=== PATIENT | male | born 1960 | race Caucasian/White ===

== ENCOUNTER 2020-03-11 07:50 | Outpatient (CLI) | payer OTHER, SELFPAY ==
[2020-03-11 19:42] LABS: SARS-CoV-2 RNA PCR Negative
== END 2020-03-11 07:51 | disposition home or self-care (01) ==
LOC: ANHCOVIDDT 07:50
PROVIDERS: PCP Physician Assistant; Visit Provider Internal Medicine Gastroenterology
DX: Z01.812 Encounter for preprocedural laboratory examination (principal); Z20.822 Contact with and (suspected) exposure to COVID-19
CPT/HCPCS: C9803; U0003

== ENCOUNTER 2020-03-14 00:20 | Day surgery (SDC) | payer OTHER, SELFPAY ==
[2020-03-03 12:53] VITALS: BMI 31.1
--- NOTE | 2020-03-04 13:16 | PC.NURSE ---
SPOKE WITH PT REGARDING COVID PRESCREENING, PT WANTS TO HAVE IT DONE AT [facility]. INFORMED PT HE WILL NEED HIS PRIMARY TO ORDER THE TEST AT [facility] AND HE IS RESPONSIBLE TO MAKING SURE [facility] FAXES THE RESULTS TO US AT [phone] NO LATER THAN 03/13/2020.
[2020-03-14] MEDS: LACTATED RINGERS 1,000 ML 150 ML IV CONT (09:05)
[2020-03-14 09:13] VITALS: BP 162/99; PULSE 68; RESP 20; TEMP 36.6; O2SAT 97
--- NOTE | 2020-03-14 09:31 | WPDANESEPPF ---
Anes - Initial Pre Proc Eval Procedure: Operation Date: 03/14/20 10:00 Proposed Procedures p Screening Colonoscopy - Bobby Martin MD Date/Time: 03/14/20 09:31 Surgeon: Bobby Martin MD Pre Op Diagnosis: neoplasm screening Patient Data Age: 59 Gender: M Height: 5 ft 7 in Weight: 83.5 kg Last Vital Signs Temp 97.8 F 03/14/20 09:13 Pulse 68 03/14/20 09:13 Resp 20 03/14/20 09:13 BP 162/99 H 03/14/20 09:13 Pulse Ox 97 03/14/20 09:13 Allergies Allergy/AdvReac Type Severity Reaction Status Date / Time lisinopril Allergy Mild jitteriness, Verified 03/03/20 12:52 nervousness, sweating Home Medications Medication Instructions Recorded Confirmed Type hydrocodone 10 mg-acetaminophen 1 tablet PO Q4-6H PRN tablet 04/20/19 03/03/20 History 325 mg tablet melatonin 3 mg capsule 3 mg PO DAILY 04/20/19 03/03/20 History quinapril 20 mg tablet 20 mg PO DAILY #90 tablet 01/01/20 03/03/20 Rx Patient hx anesthesia problems: none Family hx anesthesia problems: none PMFSH Past Medical History Medical History (Updated 03/14/20 @ 09:31 by Harinder Oliveira MD) Hypertension Family History Family History Mother Patient's mother is in good health Other Family history of neuropathy Social History Social History Smoking status: Never smoker Second hand tobacco smoke exposure: No Alcohol intake: never Substance use: never Substance use type: does not use Living arrangements: with family Spiritual care concerns: No Anes - Eval Final PreProcedure Day of Procedure 03/14/20 09:31 Patient weight: normal Heart: regular rate and rhythm Lungs: clear to auscultation Airway: Mallampati scale class II Neurological: alert and oriented Last oral intake: >/= 8 hours ASA classification: II Emergent: no Anesthetic plan: proceed Anesthesia type and monitoring: general GIVS and standard monitoring Informed Consent: The patient's anesthetic plan and its attendant risks and benefits were discussed with the patient/family/POA. Questions were solicited and answers provided to the satisfaction of the patient/family/POA.
--- NOTE | 2020-03-14 09:53 | PM.HPGS ---
History of Present Illness History of Present Illness Consent: Risks, benefits, and alternatives have been discussed and questions answered. Patient agrees to proceed with procedure. Chief complaint: neoplasm screening Narrative: Jung Hines is a 59 year old male here for screening colonoscopy, last one 8 years ago. Review of Systems Constitutional: Constitutional: Denies headache(s) and Denies weakness Eyes: Eyes: Denies blurry vision ENT: Reports Normal hearing present, Denies headache(s) and Denies neck pain Cardiovascular: Cardiovascular: Denies chest pain and Denies dyspnea Respiratory: Respiratory: Denies dyspnea Gastrointestinal: Gastrointestinal: Reports no additional gastrointestinal complaints Genitourinary: Genitourinary: Denies dysuria Musculoskeletal: Musculoskeletal: Denies neck pain Integumentary/Breasts: Skin/Breast: Denies dry skin Neurologic: Reports Normal hearing present, Denies headache(s) and Denies weakness Psychiatric: Psychiatric: Denies anxiety Endocrine: Endocrine: Denies change in body appearance Hematologic/Lymphatic: Hematologic/Lymphatic: Denies easy bleeding Allergic/Immunologic: Allergic/Immunologic: Denies urticaria PMFSH Past Medical History Medical History (Updated 03/14/20 @ 09:53 by Bobby Martin MD) Colon cancer screening Hypertension Family History Family History Mother Patient's mother is in good health Other Family history of neuropathy Social History Social History Smoking status: Never smoker Second hand tobacco smoke exposure: No Alcohol intake: never Substance use: never Substance use type: does not use Living arrangements: with family Spiritual care concerns: No Meds Home Medications and Allergies Home Medications Medication Instructions Recorded Confirmed Type hydrocodone 10 mg-acetaminophen 1 tablet PO Q4-6H PRN tablet 04/20/19 03/03/20 History 325 mg tablet melatonin 3 mg capsule 3 mg PO DAILY 04/20/19 03/03/20 History quinapril 20 mg tablet 20 mg PO DAILY #90 tablet 01/01/20 03/03/20 Rx Allergies Allergy/AdvReac Type Severity Reaction Status Date / Time lisinopril Allergy Mild jitteriness, Verified 03/03/20 12:52 nervousness, sweating Vital Signs Vital Signs - 24 hr 03/14/20 09:13 Temperature 97.8 F Pulse Rate 68 Respiratory Rate 20 Blood Pressure 162/99 H Pulse Oximetry 97 Exam Const: General: comfortable and no acute distress HENMT: General nose exam: Normal nares present Eyes: General: appearance normal, both eyes and all related structures Neck: Neck: no JVD Resp: Auscultation: clear to auscultation bilaterally Cardio: Rate: regular rate Rhythm: regular rhythm GI: Inspection: non-distended GI Palp: Yes Soft to palpation Skin: General skin exam: normal color Neuro: General: gait normal Speech: normal speech Extrem: General: normal to inspection Psych: Mental Status: mental status grossly normal Assessment and Plan Assessment and plan (1) Colon cancer screening: Code(s): Z12.11 - Encounter for screening for malignant neoplasm of colon Status: Acute Assessment and Plan: will proceed with colonoscopy
[2020-03-14 10:21] VITALS: BP 129/93; PULSE 69; RESP 18; O2SAT 97
[2020-03-14 10:31] VITALS: BP 159/104; PULSE 68; RESP 20; O2SAT 96
[2020-03-14 10:41] VITALS: BP 176/105; PULSE 56; RESP 18; O2SAT 100
--- NOTE | 2020-03-14 10:48 | SUR.PHASEII ---
DR LEARY MADE AWARE OF PT'S BLOOD PRESSURE OF 159/104 AND 176/105. PT HAS NOT TAKEN HIS QUINAPRIL TODAY. DR LEARY INSTRUCTED PT TO TAKE MEDICATION WHEN HE GETS HOME. NO NEW ORDERS.
== END 2020-03-14 10:57 | disposition home or self-care (01) ==
PROVIDERS: PCP Physician Assistant; Visit Provider Internal Medicine Gastroenterology
PROC: 0DJD8ZZ Inspection of Lower Intestinal Tract, Via Natural or Artificial Opening Endoscopic (ICD-10-PCS; CPT 45378; principal; 2020-03-14 10:00)
DX: Z12.11 Encounter for screening for malignant neoplasm of colon (principal); I10 Essential (primary) hypertension; K64.8 Other hemorrhoids
CPT/HCPCS: 45378; C9803; J2704; J7120; U0003

== ENCOUNTER 2020-05-07 13:20 | Outpatient (CLI) | payer OTHER, SELFPAY | END 2020-05-07 13:21 | disposition home or self-care (01) | LOC: ANHCOVIDVC 13:20 | PROVIDERS: PCP Physician Assistant | DX: Z23 Encounter for immunization (principal) | CPT/HCPCS: 0001A; 91300 ==

== ENCOUNTER 2020-05-28 13:19 | Outpatient (CLI) | payer OTHER, SELFPAY | END 2020-05-28 13:20 | disposition home or self-care (01) | LOC: ANHCOVIDVC 13:19 | PROVIDERS: PCP Physician Assistant | DX: Z23 Encounter for immunization (principal) | CPT/HCPCS: 0002A; 91300 ==

== ENCOUNTER 2023-05-04 15:29 | Outpatient (CLI) | payer BC, SELFPAY ==
--- NOTE | ~2023-05-04 | MR_ITS ---
EXAMINATION: MR lumbar spine wo con DATE: 05/04/2023 16:02 INDICATION: Low back pain, unspecified. TECHNIQUE: Magnetic resonance imaging (MRI) of the lumbar spine was performed without intravenous con trast. Sequences included sagittal T2-weighted FSE, sagittal T2-weighted FS FSE, sagittal T1-weighted FSE, and axial T2-weighted FSE. COMPARISON: Lumbar spine MRI 04/03/2007 FINDINGS: There is 6 degrees levocurvature of thoracolumbar spine. Vertebral body heights are normal. There is mildly decreased disc height at L3-L4, moderately decreased disc height at L4-L5, and sever saurabh decreased disc height at L5-S1. The distal spinal cord signal intensity is normal. The conus medu llaris is at L1. The following disc levels are specifically discussed: L1-L2: The disc is bulging. There is mild bilateral facet joint osteoarthritis. There is mild right n eural foraminal stenosis. There is mild central canal stenosis. L2-L3: There is a left foraminal protrusion. There is mild bilateral facet joint osteoarthritis. Ther e is mild left neural foraminal stenosis. There is no central canal stenosis. L3-L4: The disc is bulging and has an annular fissure. There is mild bilateral facet joint osteoarthr itis. There is mild bilateral neural foraminal stenosis. There is mild central canal stenosis. L4-L5: The disc is bulging. There is mild bilateral facet joint osteoarthritis. There is mild bilater al neural foraminal stenosis. There is mild central canal stenosis. L5-S1: The disc is bulging and has an annular fissure. There is mild bilateral facet joint osteoarthr itis. There is mild bilateral neural foraminal stenosis. There is mild central canal stenosis. IMPRESSION: 1. Severe lower lumbar spondylosis. Reviewed, dictated and finalized at location A. ERY STACKER
== END 2023-05-04 15:30 ==
LOC: GOSHIMG 15:30
PROVIDERS: PCP Pain Medicine Interventional Pain Medicine; Visit Provider Physician Assistant
DX: M47.896 Other spondylosis, lumbar region (principal)
CPT/HCPCS: 72148